=== PATIENT | female | born 1935 | race Caucasian/White ===

== ENCOUNTER 2017-07-18 20:35 | Emergency (ER) | payer MEDICAID, MEDICARE, OTHER ==
[2017-07-18 20:42] VITALS: BMI 22.1
[2017-07-18 21:03] VITALS: TEMP 98.2
--- NOTE | 2017-07-18 21:06 | ED PDOC ---
Arrival/HPI - General Chief Complaint: Dizziness/Lightheaded Time Seen by Provider: 07/18/17 20:41 Historian: Patient, Family, Lead Systems Engineer (scribe) - History of Present Illness Narrative History of Present Illness (Text): 07/18/17 21:01 A 82 year old female presents to the emergency department complaining of dizziness since this morning. Patient is Niuean speaking, history obtained through scribe who translated for patient. Patient reports her symptom is relieved with her eyes closed and worsened with movement. Daughter reports patient was recently discharged yesterday from [facility] for pneumonia. Patient denies any fever, chills, nausea, vomiting, abdominal pain, chest pain, shortness of breath, headache, vision changes, hearing changes or any other complaints. Time/Duration: Other (this morning) Symptom Course: Unchanged Quality: Other Context: Home Past Medical History - Provider Review Nursing Documentation Reviewed: Yes - Infectious Disease Hx of Infectious Diseases: None - Tetanus Immunization Tetanus Immunization: Unknown - Cardiac Hx Cardiac Disorders: Yes Hx Congestive Heart Failure: Yes Hx TN: Yes (TN) Hx Hypertension: Yes Other/Comment: HX OF DVTs - Pulmonary Hx Respiratory Disorders: Yes Hx Pneumonia: Yes - Neurological Hx Neurological Disorder: Yes HX Cerebrovascular Accident: Yes Hx Dizziness: Yes - HEENT Hx HEENT Disorder: No - Renal Hx Renal Disorder: No - Endocrine/Metabolic Hx Endocrine Disorders: No - Hematological/Oncological Hx Blood Disorders: Yes Hx Anemia: Yes - Integumentary Hx Dermatological Disorder: No - Musculoskeletal/Rheumatological Hx Arthritis: Yes - Gastrointestinal Hx Gastrointestinal Disorders: No - Genitourinary/Gynecological Hx Genitourinary Disorders: No - Psychiatric Hx Psychophysiologic Disorder: No Hx Substance Use: No - Past Surgical History Past Surgical History: Non-Contributing - Surgical History Hx Coronary Stent: (?) Other/Comment: hernia repair - Anesthesia Hx Anesthesia: Yes Hx Anesthesia Reactions: No Hx Malignant Hyperthermia: No - Suicidal Assessment Feels Threatened In Home Enviroment: No Family/Social History - Physician Review Nursing Documentation Reviewed: Yes Family/Social History: No Known Family HX Smoking Status: Never Smoked Hx Alcohol Use: No Hx Substance Use: No Hx Substance Use Treatment: No Allergies/Home Meds Allergies/Adverse Reactions: Allergies No Known Allergies Allergy (Verified 07/18/17 20:43) Home Medications: Home Meds Medication Instructions Recorded Confirmed Nifedipine [Nifedipine ER] 60 mg PO DAILY 06/11/13 07/18/17 Aspirin [Aspirin Chewable] 81 mg PO DAILY 07/11/17 07/18/17 Clopidogrel [Plavix] 75 mg PO DAILY 07/11/17 07/18/17 Furosemide [Lasix] 1 tab PO DAILY 07/11/17 07/18/17 Metoprolol Succinate 100 mg PO DAILY 07/11/17 07/18/17 Ramipril [Altace] 1.25 mg PO DAILY 07/11/17 07/18/17 Simvastatin 40 mg PO HS 07/11/17 07/18/17 amLODIPine [Norvasc] 1 tab PO DAILY 07/11/17 07/18/17 Review of Systems - Physician Review All systems were reviewed & negative as marked: Yes - Review of Systems Constitutional: absent: Fevers, Night Sweats Eyes: absent: Vision Changes ENT: absent: Hearing Changes Respiratory: absent: SOB Cardiovascular: absent: Chest Pain Gastrointestinal: absent: Abdominal Pain, Nausea, Vomiting Neurological: Dizziness. absent: Headache Physical Exam Vital Signs Reviewed: Yes Vital Signs Temp Pulse Resp BP Pulse Ox 07/18/17 23:00 65 16 138/62 98 07/18/17 20:39 98.2 F 61 18 134/58 L 95 Appearance: Positive for: Uncomfortable (eyes closed) Pain Distress: None Mental Status: Positive for: Alert and Oriented X 3 Finger Stick Blood Glucose: 138 - Systems Exam Head: Present: Atraumatic, Normocephalic Pupils: Present: PERRL Extroacular Muscles: Present: EOMI Mouth: Present: Moist Mucous Membranes Neck: Present: Normal Range of Motion. No: Meningeal Signs Respiratory/Chest: Present: Clear to Auscultation, Good Air Exchange. No: Respiratory Distress, Accessory Muscle Use Cardiovascular: Present: Regular Rate and Rhythm Abdomen: No: Tenderness, Distention, Peritoneal Signs Back: Present: Normal Inspection Upper Extremity: No: Cyanosis, Edema Lower Extremity: No: Edema Neurological: Present: GCS=15, CN II-XII Intact, Speech Normal, Motor Func Grossly Intact, Normal Sensory Function, Normal Cerebellar Funct, Norm Deep Tendon Reflexes, Other (no nystamus, no skew deviation) Skin: Present: Warm, Dry, Normal Color. No: Rashes Psychiatric: Present: Alert, Oriented x 3 Medical Decision Making ED Course and Treatment: 07/18/17 21:01 EKG shows sinus bradycardia at 59 BPM. Interpreted by me. 07/18/17 22:00 On re-evaluation, patient states her symptom has fully resolved after meclazine. 07/18/17 22:48 EXAM: CT Head Without Intravenous Contrast CLINICAL HISTORY: 82 years old, female; Signs and symptoms; Dizziness; Additional info: Dizzy TECHNIQUE: Axial computed tomography images of the head/brain without intravenous contrast. All CT scans at this facility use one or more dose reduction techniques, viz.: automated exposure control; ma/kV adjustment per patient size (including targeted exams where dose is matched to indication; i.e. head); or iterative reconstruction technique. COMPARISON: No relevant prior studies available. FINDINGS: Brain: Pslb-vy-mjjwjpys atrophy. No intracranial hemorrhage. No mass. Several scattered foci of decreased attenuation within periventricular/subcortical white matter. Probable chronic lacunar infarct within LEFT basal ganglia. Probable chronic lacunar infarct within RIGHT cerebellum. No definite edema. Ventricles: No hydrocephalus. Bones/joints: No acute fracture. Soft tissues: Unremarkable. Vasculature: Atherosclerotic disease of intracranial arteries. Sinuses: No acute sinusitis. Mastoid air cells: No mastoid effusion. Orbits: Unremarkable as visualized. IMPRESSION: 1. Nonspecific white matter changes. Acute infarction may be CT occult within first 24 hours. If a focal deficit persists, consider followup CT or MRI for further evaluation. 2. Incidental/non-acute findings are described above 07/18/17 22:52 Disc results w pt and daughter- she feels well, no recurrence of her symptoms. she appears well, is now talkative, smiling, with eyes now open. they wish to go home. disc importance of close follow up as well as rtr. - Lab Interpretations Lab Results: 07/18/17 21:14 07/18/17 21:14 Lab Results 07/18/17 21:14: Sodium 144, Potassium 4.0, Chloride 106, Carbon Dioxide 30, Anion Gap 13, BUN 42 H, Creatinine 1.3 H, Est GFR ( Amer) 47, Est GFR ( Non-Af Amer) 39, Random Glucose 137 H, Calcium 9.6, Total Bilirubin 0.5, AST 59 H D, ALT 56, Alkaline Phosphatase 80, Troponin I 0.04 D, Total Protein 7.9, Albumin 4.1, Globulin 3.8, Albumin/Globulin Ratio 1.1 12/06/17 21:14: WBC 8.4 D, RBC 4.69, Hgb 12.8, Hct 39.7, MCV 84.6, MCH 27.3, MCHC 32.2, RDW 14.6 H, Plt Count 357, MPV 10.1, Gran % 69.6 H, Lymph % (Auto) 23.8, [place] % (Auto) 6.4 H, Eos % (Auto) 0.2 L, Baso % (Auto) 0.0, Gran # 5.87, Lymph # 2.0, [place] # 0.5, Eos # 0.0, Baso # 0.00 - RAD Interpretation Radiology Orders: 07/18/17 21:03 HEAD W/O CONTRAST [CT] Stat CHEST PORTABLE [RAD] Stat - Medication Orders Current Medication Orders: Discontinued Medications Meclizine HCl (Antivert) 25 mg PO STAT STA Stop: 07/18/17 21:04 Last Admin: 07/18/17 21:25 Dose: 25 mg - Scribe Statement The provider has reviewed the documentation as recorded by the Leland Cohen Provider Scribe Attestation: All medical record entries made by the Rinkuibariella were at my direction and personally dictated by me. I have reviewed the chart and agree that the record accurately reflects my personal performance of the history, physical exam, medical decision making, and the department course for this patient. I have also personally directed, reviewed, and agree with the discharge instructions and disposition. Disposition/Present on Arrival - Present on Arrival Any Indicators Present on Arrival: Yes History of DVT/PE: Yes History of Uncontrolled Diabetes: No Urinary Catheter: No History of Decub. Ulcer: No History Surgical Site Infection Following: None - Disposition Have Diagnosis and Disposition been Completed?: Yes Diagnosis: Vertigo Disposition: HOME/ ROUTINE Disposition Time: 22:51 Condition: IMPROVED Discharge Instructions (ExitCare): Vertigo (ED) Print Language: UKRAINIAN Additional Instructions: Please follow up with your doctor tomorrow. Return to the ER for any worsening symptoms or for any other concerns. Prescriptions: Meclizine [Meclizine*] 25 mg PO Q8H PRN #30 tab PRN Reason: vertigo Forms: [employer] (Niuean)
[2017-07-18 21:30] LABS: EOS % 0.2 % (1.5-5.0); GRAN # 5.87 (1.4-6.5); GRAN % 69.6 % (50.0-68.0); HEMATOCRIT 39.7 % (36.0-48.0); LYMPH % 23.8 % (22.0-35.0); MEAN CELL VOLUME 84.6 fl (80.0-105.0); MEAN CORPUSCULAR HEMOGLOBIN 27.3 pg (25.0-35.0); MEAN CORPUSCULAR HGB CONC 32.2 g/dl (31.0-37.0); MEAN PLATELET VOLUME 10.1 fl (7.0-11.0); MONO # 0.5 (0.1-0.6); MONO % 6.4 % (1.0-6.0); RED CELL DISTRIBUTION WIDTH 14.6 % (11.5-14.5); WHITE BLOOD COUNT 8.4 10^3/ul (4.5-11.0)
[2017-07-18 21:35] LABS: ALB/GLOB RATIO 1.1 (1.1-1.8); BILIRUBIN,TOTAL 0.5 mg/dL (0.2-1.3); CALCIUM 9.6 mg/dL (8.4-10.5); TOTAL PROTEIN 7.9 g/dL (5.8-8.3)
[2017-07-18 21:46] LABS: TROPONIN I 0.04 ng/mL
[2017-07-18] MEDS ORDERED: Sodium Chloride 0.9% 1,000 ML IV STA (21:55)
--- NOTE | 2017-07-18 22:42 | CT ---
EXAM: CT Head Without Intravenous Contrast CLINICAL HISTORY: 82 years old, female; Signs and symptoms; Dizziness; Additional info: Dizzy TECHNIQUE: Axial computed tomography images of the head/brain without intravenous contrast. All CT scans at this facility use one or more dose reduction techniques, viz.: automated exposure control; ma/kV adjustment per patient size (including targeted exams where dose is matched to indication; i.e. head); or iterative reconstruction technique. COMPARISON: No relevant prior studies available. FINDINGS: Brain: Bzlk-uj-rzxsoihm atrophy. No intracranial hemorrhage. No mass. Several scattered foci of decreased attenuation within periventricular/subcortical white matter. Probable chronic lacunar infarct within LEFT basal ganglia. Probable chronic lacunar infarct within RIGHT cerebellum. No definite edema. Ventricles: No hydrocephalus. Bones/joints: No acute fracture. Soft tissues: Unremarkable. Vasculature: Atherosclerotic disease of intracranial arteries. Sinuses: No acute sinusitis. Mastoid air cells: No mastoid effusion. Orbits: Unremarkable as visualized. IMPRESSION: 1. Nonspecific white matter changes. Acute infarction may be CT occult within first 24 hours. If a focal deficit persists, consider followup CT or MRI for further evaluation. 2. Incidental/non-acute findings are described above.
[2017-07-18 23:20] VITALS: BP 138/62; PULSE 65; RESP 16; O2SAT 98
--- NOTE | 2017-07-19 07:56 | RAD ---
HISTORY: dizzy COMPARISON: 05/09/2017 FINDINGS: LUNGS: No active pulmonary disease. PLEURA: Right-sided pleural plaques CARDIOVASCULAR: Severe cardiomegaly and aortic tortuosity. OSSEOUS STRUCTURES: No significant abnormalities. VISUALIZED UPPER ABDOMEN: Normal. OTHER FINDINGS: None. IMPRESSION: No active disease.
--- NOTE | 2017-07-19 09:53 | CARD ---
APPROVED REPORT EKG Measurement Heart [id number] <Conclusion> Sinus bradycardia Otherwise normal ECG
== END 2017-07-18 23:21 | disposition home or self-care (01) ==
LOC: ED 20:35
DX: R42 Dizziness and giddiness (principal); I10 Essential (primary) hypertension; I25.2 Old myocardial infarction

== ENCOUNTER 2017-10-08 09:57 | Inpatient (IN) | payer OTHER, MEDICAID ==
[2017-10-08 10:43] VITALS: BMI 25.4
--- NOTE | 2017-10-08 11:22 | ED PDOC ---
Arrival/HPI - General Chief Complaint: Dizziness/Lightheaded - History of Present Illness Narrative History of Present Illness (Text): 10/08/17 11:17 Pt is an 82 yo F with PMH of CAD, chronic CHF with preserved EF, hypertension, hypercholesterolemia, and possible dementia presents to ED with dizziness for the past 2 weeks. Pt states that she gets dizzy when she gets up too quickly, but when she rests the dizziness goes away. 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 Good Humor Vendor states that she seems to be more confused lately. Pt denied CP, SOB, n/v/d, abdominal pain, fever, chills, peripheral edema, MCCRAY, or dysuria. PMD: [place] Past Medical History - Provider Review Nursing Documentation Reviewed: Yes - Infectious Disease Hx of Infectious Diseases: None - Tetanus Immunization Tetanus Immunization: Unknown - Cardiac Hx Cardiac Disorders: Yes Hx Congestive Heart Failure: Yes Hx Hypertension: Yes - Pulmonary Hx Respiratory Disorders: No - Neurological Hx Neurological Disorder: Yes Hx Dizziness: Yes - HEENT Hx HEENT Disorder: No - Renal Hx Renal Disorder: No - Endocrine/Metabolic Hx Endocrine Disorders: No - Hematological/Oncological Hx Blood Disorders: Yes Hx Anemia: Yes - Integumentary Hx Dermatological Disorder: No - Musculoskeletal/Rheumatological Hx Musculoskeletal Disorders: Yes Hx Arthritis: Yes - Gastrointestinal Hx Gastrointestinal Disorders: No - Genitourinary/Gynecological Hx Genitourinary Disorders: No - Psychiatric Hx Psychophysiologic Disorder: No Hx Substance Use: No - Past Surgical History Past Surgical History: Non-Contributing - Surgical History Hx Coronary Stent: (?) Other/Comment: hernia repair - Anesthesia Hx Anesthesia: Yes Hx Anesthesia Reactions: No Hx Malignant Hyperthermia: No - Suicidal Assessment Feels Threatened In Home Enviroment: No Family/Social History - Physician Review Nursing Documentation Reviewed: Yes Family/Social History: No Known Family HX Smoking Status: Never Smoked Hx Alcohol Use: No Hx Substance Use: No Hx Substance Use Treatment: No Allergies/Home Meds Allergies/Adverse Reactions: Allergies No Known Allergies Allergy (Verified 07/18/17 20:43) Home Medications: Home Meds Medication Instructions Recorded Confirmed Aspirin [Aspirin Chewable] 81 mg PO DAILY 07/11/17 10/08/17 Clopidogrel [Plavix] 75 mg PO DAILY 07/11/17 10/08/17 Furosemide [Lasix] 1 tab PO DAILY 07/11/17 10/08/17 Metoprolol Succinate 100 mg PO DAILY 07/11/17 10/08/17 Ramipril [Altace] 1.25 mg PO DAILY 07/11/17 10/08/17 Simvastatin 40 mg PO HS 07/11/17 10/08/17 amLODIPine [Norvasc] 1 tab PO DAILY 07/11/17 10/08/17 Donepezil [Aricept] 5 mg PO DAILY 10/08/17 10/08/17 Review of Systems - Physician Review All systems were reviewed & negative as marked: Yes - Review of Systems Constitutional: Normal. absent: Fatigue, Weight Change, Fevers, Night Sweats Eyes: Normal ENT: Normal. absent: Hearing Changes, Tinnitus Respiratory: Normal Cardiovascular: Normal Gastrointestinal: Normal Genitourinary Female: Normal Musculoskeletal: Normal Skin: Normal Neurological: Dizziness. absent: Headache, Focal Weakness, Gait Changes Endocrine: Normal Hemo/Lymphatic: Normal Psychiatric: Normal Physical Exam Vital Signs Reviewed: Yes Vital Signs Temp Pulse Resp BP Pulse Ox 10/08/17 10:36 98.1 F 72 18 142/84 98 Temperature: Afebrile Blood Pressure: Normal Pulse: Regular Respiratory Rate: Normal Appearance: Positive for: Well-Appearing Pain Distress: None Mental Status: Positive for: Alert and Oriented X 3 - Systems Exam Head: Present: Atraumatic, Normocephalic Pupils: Present: PERRL Extroacular Muscles: Present: EOMI Conjunctiva: Present: Normal Mouth: Present: Moist Mucous Membranes Nose (Internal): Present: Normal Inspection Neck: Present: Normal Range of Motion. No: Meningeal Signs, MIDLINE TENDERNESS , Paraspinal Tenderness Respiratory/Chest: Present: Clear to Auscultation. No: Respiratory Distress, Accessory Muscle Use, Wheezes, Rales, Rhonchi Cardiovascular: Present: Regular Rate and Rhythm, Normal S1, S2. No: Murmurs, Rub, Gallop Abdomen: No: Tenderness, Distention, Peritoneal Signs, Rebound, Guarding Back: Present: Normal Inspection Upper Extremity: Present: Normal Inspection Lower Extremity: Present: Normal Inspection Neurological: Present: GCS=15, CN II-XII Intact, Speech Normal, Motor Func Grossly Intact, Normal Sensory Function, Normal 2Pt Descrimination. No: Gait Normal (patient has difficulty standing/walking without assistance) Skin: Present: Warm, Dry, Normal Color Psychiatric: Present: Alert, Oriented x 3 Medical Decision Making ED Course and Treatment: 10/08/17 11:25 Assessment: 82 yo F presents to ED with 2 week history of dizziness. Plan: - CBC - CMP - Cardiac Iso - EKG - UA - Head CT - Orthostatics 10/08/17 11:43 EKG showed sinus rhythem with 1st degree AV block, rate 62. 10/08/17 11:45 Orthostatic vital signs negative. 10/08/17 12:30 CT head shows no acute intracranial findings. 10/08/17 15:[address] Allen, she agrees with plan and accepts patient under her service. Requests Dr. Santoyo for neuro consult. Impression: Dizziness, near-syncope; patient will be admitted for observation under remote telemetry. - Lab Interpretations Lab Results: 10/08/17 12:17 10/08/17 12:17 Lab Results 10/08/17 13:55: Urine Color Yellow, Urine Appearance Clear, Urine pH 6.0, Ur Specific [place] >= 1.030, Urine Protein >=300 H, Urine Glucose (UA) Negative, Urine Ketones Negative, Urine Blood Negative, Urine Nitrate Negative, Urine Bilirubin Negative, Urine Urobilinogen 0.2, Ur Leukocyte Esterase Trace H, Urine RBC 0 - 2, Urine WBC 1 - 3, Ur Epithelial Cells 1 - 3, Urine Bacteria Trace 10/08/17 12:17: Sodium 146, Potassium 4.0, Chloride 109 H, Carbon Dioxide 26, Anion Gap 14, BUN 21, Creatinine 1.1, Est GFR ( Amer) 58, Est GFR (Non- Af Amer) 48, Random Glucose 96, Calcium 10.7 H, Magnesium 2.2, Total Bilirubin 0.6, AST 39 H D, ALT 30, Alkaline Phosphatase 78, Lactate Dehydrogenase 410, Total Creatine Kinase 60, Troponin I 0.03 D, Total Protein 7.8, Albumin 4.0, Globulin 3.8, Albumin/Globulin Ratio 1.1 10/08/17 12:17: WBC 9.9, RBC 4.37, Hgb 11.9 L, Hct 37.4, MCV 85.6, MCH 27.2, MCHC 31.8, RDW 15.6 H, Plt Count 382, MPV 9.7, Gran % 35.4 L, Lymph % (Auto) 40.5 H, [place] % (Auto) 6.6 H, Eos % (Auto) 17.0 H, Baso % (Auto) 0.5, Gran # 3.50 , Lymph # (Auto) 4.0 H, [place] # (Auto) 0.7 H, Eos # (Auto) 1.7 H, Baso # (Auto) 0.05 - RAD Interpretation Radiology Orders: 10/08/17 11:12 HEAD W/O CONTRAST [CT] Stat Disposition/Present on Arrival - Present on Arrival Any Indicators Present on Arrival: No History of DVT/PE: Yes History of Uncontrolled Diabetes: No Urinary Catheter: No History of Decub. Ulcer: No History Surgical Site Infection Following: None - Disposition Have Diagnosis and Disposition been Completed?: Yes Diagnosis: Near syncope, Dizziness Disposition: HOSPITALIZED Disposition Time: 15:09 Patient Plan: Admission, Observation Condition: STABLE Referrals: Carlos Granger [Primary Care Provider] - Follow up with primary Forms: [employer] ([place])
--- NOTE | 2017-10-08 12:19 | CT ---
PROCEDURE: CT HEAD WITHOUT CONTRAST. HISTORY: dizziness COMPARISON: None available. TECHNIQUE: Axial computed tomography images were obtained through the head/brain without intravenous contrast. Radiation dose: Total exam DLP = 730 mGy-cm. This CT exam was performed using one or more of the following dose reduction techniques: Automated exposure control, adjustment of the mA and/or kV according to patient size, and/or use of iterative reconstruction technique. FINDINGS: HEMORRHAGE: No intracranial hemorrhage. BRAIN: No mass effect or edema. Chronic microvascular changes are seen in the periventricular white matter. VENTRICLES: Unremarkable. No hydrocephalus. CALVARIUM: Unremarkable. PARANASAL SINUSES: Unremarkable as visualized. No significant inflammatory changes. MASTOID AIR CELLS: Unremarkable as visualized. No inflammatory changes. OTHER FINDINGS: None. IMPRESSION: No acute intracranial findings
[2017-10-08 12:27] LABS: BASO # 0.05 K/mm3 (0.0-2.0); BASO % 0.5 % (0.0-3.0); EOS # 1.7 (0.0-0.7); GRAN # 3.5 (1.4-6.5); GRAN % 35.4 % (50.0-68.0); HEMOGLOBIN 11.9 g/dL (12.0-16.0); LYMPH % 40.5 % (22.0-35.0); MEAN CELL VOLUME 85.6 fl (80.0-105.0); MEAN CORPUSCULAR HEMOGLOBIN 27.2 pg (25.0-35.0); MEAN CORPUSCULAR HGB CONC 31.8 g/dl (31.0-37.0); MEAN PLATELET VOLUME 9.7 fl (7.0-11.0); MONO # 0.7 (0.1-0.6); MONO % 6.6 % (1.0-6.0); RBC 4.37 10^6/uL (3.5-6.1); RED CELL DISTRIBUTION WIDTH 15.6 % (11.5-14.5); WHITE BLOOD COUNT 9.9 10^3/ul (4.5-11.0)
[2017-10-08 12:39] LABS: ALB/GLOB RATIO 1.1 (1.1-1.8); CALCIUM 10.7 mg/dL (8.4-10.5); MAGNESIUM 2.2 mg/dL (1.7-2.2)
[2017-10-08 12:49] LABS: TROPONIN I 0.03 ng/mL
[2017-10-08 14:04] LABS: URINE BILIRUBIN NEGATIVE (NEGATIVE); URINE BLOOD NEGATIVE (NEGATIVE); URINE GLUCOSE (UA) NEGATIVE (NEGATIVE); URINE LEUKOCYTE ESTERASE TRACE Leu/uL (NEGATIVE); URINE NITRATE NEGATIVE (NEGATIVE); URINE PROTEIN >=300 mg/dL (<30 mg/dL); URINE UROBILINOGEN 0.2 E.U./dL (<1 E.U./dL)
[2017-10-08 14:08] LABS: URINE APPEARANCE CLEAR (CLEAR); URINE COLOR YELLOW (YELLOW)
[2017-10-08 14:19] LABS: URINE BACTERIA TRACE (NEG); URINE RBC 0 - 2 /hpf (0-2)
--- NOTE | 2017-10-08 16:33 | CARD ---
APPROVED REPORT EKG Measurement Heart [id number] <Conclusion> Sinus rhythm with 1st degree AV block Nonspecific T wave abnormality Abnormal ECG
--- NOTE | 2017-10-08 17:50 | CON ---
DATE: 10/08/2017 NEUROLOGY CONSULTATION CHIEF COMPLAINT: Mild dizziness. HISTORY OF PRESENT ILLNESS: This is an 82-year-old woman with history of coronary artery disease, chronic CHF, preserved EF with hypertension, hypercholesterolemia, some mild cognitive impairment, dizziness for the past 2 weeks. She states when she gets up from a sitting to a standing position, she gets lightheaded, the room. Currently she mentions that her dizziness is much better. She occasionally has intermittent episodes of poor attention span and slow thought process. This is likely related to underlying cognitive impairment. A CAT scan of the head showed no acute intracranial abnormalities or chronic ischemic changes. There was no major changes in her labs except for high calcium level of 10.7. PAST MEDICAL HISTORY: History of hypertension, CHF, hypercholesterolemia, mild cognitive impairment. FAMILY HISTORY: Noncontributory. SOCIAL HISTORY: No illicit drug use, smoking or EtOH abuse. MEDICATIONS: Reviewed by nurse reconciliation sheet. REVIEW OF SYSTEMS: A 14-point review of systems negative except as per the HPI. PHYSICAL EXAMINATION: VITAL SIGNS: Temperature 98, pulse rate 85, blood pressure 146/79, respiratory rate of 20, oxygen saturation 96% by room air. GENERAL: Patient is sitting up in bed, no acute distress. HEENT: Atraumatic, normocephalic. PERRLA. Extraocular muscles intact. NECK: Supple. No JVD, no adenopathy noted. HEART: S1, S2, normal rate and rhythm. No murmurs, rubs or gallops. ABDOMEN: Soft, nontender, nondistended. Bowel sounds present. EXTREMITIES: No clubbing, no cyanosis. Peripheral pulses 2+ felt bilaterally. NEUROLOGIC: Patient is alert, oriented to person, place, month and year. Speech is fluent without any errors. Cranial nerves II through XII intact. Poor attention span and slow thought process. Recall after 5 minutes is 0/3. Sensory: Light touch, pinprick, proprioception, vibration intact. DTRs are 2+ throughout and 1 at the ankles. Coordination: [place]-hj-tnoj intact. Gait is deferred for now. No tremors are seen. LABORATORY DATA: Sodium is 146, potassium 4, chloride 109, carbon dioxide 26, BUN of 21, creatinine 1.1, random glucose of 96. ASSESSMENT AND PLAN: This is an 82-year-old woman with history of coronary artery disease, chronic congestive heart failure, preserved ejection fraction, hypertension, hypercholesterolemia with underlying mild cognitive impairment, , came in with dizziness for the past 2 weeks intermittently especially when getting up from a sitting to standing position and when she gets up too quickly. She denies any symptoms. She currently feels that the dizziness is much better right now. Her CAT scan of the head showed no acute intracranial abnormalities. Likely her dizziness could be secondary to possible transient hypertensive episode with superimposed underlying positional changes with possible near vasovagal component. Her CAT scan did not really show any acute intracranial abnormalities. She has no focal neurological signs in terms of weakness. RECOMMENDATIONS: At this time, I recommend: 1. PT/OT assessment. 2. Orthostatic vital signs. 3. Carotid Doppler and Holter monitor. 4. We will keep her blood pressure systolic between 130s to 140s and diastolic 70s to 80s and continue with current present medical management. Thank you for this consult. Lasha Santoyo MD /17:49:50
[2017-10-08] MEDS ORDERED: Influenza Vaccine 60 mcg/0.5 mL SYR (4YR UP) IM ONE (22:58)
[2017-10-08] MEDS ORDERED: Pneumococcal 23-Valent Vaccine IM ONE (22:58)
[2017-10-09 06:25] LABS: HEMOGLOBIN 11.7 g/dL (12.0-16.0); MEAN CELL VOLUME 84.8 fl (80.0-105.0); MEAN CORPUSCULAR HGB CONC 31.9 g/dl (31.0-37.0); MEAN PLATELET VOLUME 9.5 fl (7.0-11.0); RBC 4.33 10^6/uL (3.5-6.1); RED CELL DISTRIBUTION WIDTH 15.4 % (11.5-14.5)
[2017-10-09 06:48] LABS: ALB/GLOB RATIO 1.1 (1.1-1.8); ALBUMIN 4.1 g/dL (3.0-4.8); ALT/SGPT 34 U/L (7-56); AST/SGOT 37 U/L (14-36); BLOOD UREA NITROGEN 18 mg/dL (7-21); CALCIUM 10.5 mg/dL (8.4-10.5); GFR AFRICAN-AMERICAN > 60; GFR NON-AFRICAN AMERICAN 53; HDL CHOLESTEROL 34 mg/dL (29-60)
[2017-10-09 06:53] LABS: IRON 146 ug/dL (45-180)
[2017-10-09 07:09] LABS: LDL CHOLESTEROL 101 mg/dL (0-129)
[2017-10-09 07:13] LABS: % IRON SATURATION 52 % (20-55); TOTAL IRON BINDING CAPACITY 283 ug/dL (265-497)
--- NOTE | 2017-10-09 09:29 | US ---
PROCEDURE: Bilateral carotid artery duplex ultrasound HISTORY: Carotid stenosis dizzy PHYSICIAN(S): Eliseo Panchal MD. TECHNIQUE: Duplex sonography and color-flow Doppler were used to evaluate the carotid bifurcations and limited segments of the vertebral arteries bilaterally. FINDINGS: There is mild diffuse smooth heterogeneous plaque noted at the carotid bifurcations bilaterally. The peak systolic velocity in the proximal right internal carotid artery is 51 cm/sec. This corresponds to a 20 to 39% proximal right ICA stenosis. Normal systolic velocities are noted in the proximal right external carotid artery. There is antegrade flow in the small right vertebral artery. The peak systolic velocity in the proximal left internal carotid artery is 57 cm/sec. This corresponds to a 20 to 39% proximal left ICA stenosis. Normal systolic velocities are noted in the proximal left external carotid artery. There is antegrade flow in the left vertebral artery. IMPRESSION: 1. Bilateral 20-39% proximal ICA stenoses. 2. Antegrade flow in both vertebral arteries.
--- NOTE | 2017-10-09 10:03 | HP ---
CHIEF COMPLAINT: Dizziness, lightheadedness. HISTORY OF PRESENT ILLNESS: Ms. Mary Barton is an 82-year-old female with past medical history of coronary artery disease with congestive heart failure, came to the Emergency Room with feeling of dizziness for past two weeks. The patient states that she gets dizzy when she gets up too quickly, but when she rests, the dizziness goes away. The patient lives at home by herself with payroll technician. Sap Hana Developer states that she seems to be more confused lately. Denied chest pain or shortness of breath. No nausea, vomiting, diarrhea or abdominal pain. No fever, no chills, no headache, no peripheral edema, no dysuria. PAST MEDICAL HISTORY: Congestive heart failure, hypertension, dizziness, anemia, arthritis, hernia repair. FAMILY HISTORY: Father and mother, noncontributory. HABITS: Never smoked, no drug, no ethanol. ALLERGIES: THE PATIENT IS NOT ALLERGIC WITH ANY MEDICATIONS. HOME MEDICATIONS: Aspirin, Plavix, Lasix, metoprolol, Altace, simvastatin, Norvasc, Aricept. REVIEW OF SYSTEMS: The patient is seen and examined at the bedside, looking comfortable. No nausea, vomiting or diarrhea. No hematuria or hematochezia. No swelling of the legs. No chest pain, no palpitation, no headache, no fatigue, no weight change, no night sweats, no hearing changes, no tinnitus. Her son and mhwtnkcw-jf-sqc were standing on the bedside. PHYSICAL EXAMINATION VITAL SIGNS: Temperature 98.1, pulse 72, respiratory rate 18, blood pressure 142/84, pulse oximetry is 98. HEENT: Head: Normocephalic, atraumatic. Eyes: PERRLA. Extraocular muscles intact. Conjunctivae clear. Nose, patent. Mucous membranes moist. NECK: Supple. No carotid bruit. No JVD or thyromegaly. CHEST: Bilaterally symmetrical. HEART: S1 and S2 positive. LUNGS: Clear to auscultation. ABDOMEN: Soft. Bowel sounds present. No organomegaly. EXTREMITIES: No edema, no cyanosis. NEUROLOGIC: The patient is awake, alert, moving all 4 extremities. No focal deficits. LABORATORY DATA: White blood cell 9.9, hemoglobin 11.9, hematocrit 37.4, platelets 382,000. Sodium 146, potassium 4.0, BUN 21, creatinine 1.1, glucose 96. ASSESSMENT AND PLAN: Ms. Mary Barton is an 82-year-old lady with anemia, hyperchloremia came with near-syncope, dizziness, history of coronary artery disease, congestive heart failure with preserved ejection fraction, hypertension, hypercholesterolemia, dementia. CAT scan of the head done, reviewed by me. Bilateral carotid Doppler of the neck done, results are pending. Neurology consult called with Dr. Santoyo, seizure results are appreciated. When I saw the patient in the Emergency Room in the presence of her son and [id number], the patient was asymptomatic, feels better, maybe her dizziness could be secondary to possibly transient hypotensive episode with superimposed underlying positional changes with possibly near vasovagal components. CAT scan did not really show any acute intracranial abnormalities. Recommended physical therapy and occupational therapy, orthostatic vital signs, carotid Doppler and Holter monitor, controlling blood pressure, gastrointestinal and deep venous thrombosis prophylaxis. The patient has anemia. Started home medication. We will follow up. Noemi Allen MD MTDD
[2017-10-09] MEDS ORDERED: Potassium Chloride 20 mEq ER Tab PO ONE (10:58)
[2017-10-09] MEDS: Pantoprazole 40 mg EC Tab PO SCH (11:23)
[2017-10-09] MEDS: Metoprolol Succinate 100 mg XL Tab PO SCH (11:26)
[2017-10-09 13:22] LABS: FOLATE 9.5 ng/mL
--- NOTE | 2017-10-09 15:49 | CP.PCM.PN ---
Subjective - Date & Time of Evaluation Date of Evaluation: 10/09/17 Time of Evaluation: 14:00 - Subjective Subjective: DATE: 10/09/2017 NEUROLOGY FOLLOW UP CHIEF COMPLAINT: Mild dizziness. SUBJECTIVE: Carotid doppler reviewed. Patient is eating well and no more dizziness. PAST MEDICAL HISTORY: History of hypertension, CHF, hypercholesterolemia, mild cognitive impairment. FAMILY HISTORY: Noncontributory. SOCIAL HISTORY: No illicit drug use, smoking or EtOH abuse. MEDICATIONS: Reviewed by nurse reconciliation sheet. REVIEW OF SYSTEMS: A 14-point review of systems negative except as per the HPI. PHYSICAL EXAMINATION: VITAL SIGNS: Reviewed. GENERAL: Patient is sitting up in bed, no acute distress. HEENT: Atraumatic, normocephalic. PERRLA. Extraocular muscles intact. NECK: Supple. No JVD, no adenopathy noted. HEART: S1, S2, normal rate and rhythm. No murmurs, rubs or gallops. ABDOMEN: Soft, nontender, nondistended. Bowel sounds present. EXTREMITIES: No clubbing, no cyanosis. Peripheral pulses 2+ felt bilaterally. NEUROLOGIC: Patient is alert, oriented to person, place, month and year. Speech is fluent without any errors. Cranial nerves II through XII intact. Poor attention span and slow thought process. Recall after 5 minutes is 0/3. Sensory: Light touch, pinprick, proprioception, vibration intact. DTRs are 2+ throughout and 1 at the ankles. Coordination: Liouxl-ud-rjun intact. Gait is deferred for now. No tremors are seen. LABORATORY DATA: Reviewed via chart. \ ASSESSMENT AND PLAN: This is an 82-year-old woman with history of coronary artery disease, chronic congestive heart failure, preserved ejection fraction, hypertension, hypercholesterolemia with underlying mild cognitive impairment came in with dizziness for the past 2 weeks intermittently especially when getting up from a sitting to standing position and when she gets up too quickly. She currently feels that the dizziness is much better right now. Her CAT scan of the head showed no acute intracranial abnormalities. Orthostatics are negative, Likely her dizziness could be secondary to possible transient hypertensive episode with superimposed underlying positional changes with possible near vasovagal component. She has no focal neurological signs in terms of weakness. RECOMMENDATIONS: At this time, I recommend: 1. PT/OT assessment. 2. keep her blood pressure systolic between 130s to 140s and diastolic 70s to 80s and continue with current present medical management. Thank you Lasha Santoyo MD Objective - Vital Signs/Intake and Output Vital Signs (last 24 hours): Temp Pulse Resp BP Pulse Ox 97.9 F 81 18 153/78 H 97 10/09/17 08:37 10/09/17 08:37 10/09/17 08:37 10/09/17 11:24 10/09/17 08:37 Intake and Output: 10/09/17 10/09/17 06:59 18:59 Intake Total 0 Balance 0 - Medications Medications: Current Medications Amlodipine Besylate (Norvasc) 2.5 mg PO DAILY [facility] Last Admin: 10/09/17 11:22 Dose: 2.5 mg Aspirin (Aspirin Chewable) 81 mg PO DAILY [facility] Last Admin: 10/09/17 11:23 Dose: 81 mg Clopidogrel Bisulfate (Plavix) 75 mg PO DAILY [facility] Last Admin: 10/09/17 11:21 Dose: 75 mg Donepezil HCl (Aricept) 5 mg PO HS [facility] Last Admin: 10/08/17 21:14 Dose: 5 mg Furosemide (Lasix) 40 mg PO DAILY [facility] Last Admin: 10/09/17 11:24 Dose: 40 mg Metoprolol Succinate (Toprol Xl) 100 mg PO BRK [facility] Last Admin: 10/09/17 11:26 Dose: 100 mg Pantoprazole Sodium (Protonix Ec Tab) 40 mg PO DAILY [facility] Last Admin: 10/09/17 11:23 Dose: 40 mg Ramipril (Altace) 1.25 mg PO DAILY [facility] Last Admin: 10/09/17 11:21 Dose: 1.25 mg - Labs Labs: 10/09/17 05:15 10/09/17 05:15
--- NOTE | 2017-10-09 22:54 | CON ---
DATE: 10/09/2017 REASON FOR CONSULTATION: Dizziness, lightheadedness, history of coronary artery disease, status post stent, with a past history of aortic regurgitation. BRIEF CLINICAL HISTORY: This is an 82-year-old female with past medical history significant for coronary artery disease, status post stent in LAD in March 2008 and status post stent in RCA in April 2008, history of non-STEMI in August 2013, then the patient had a stent in RCA, came in with complaint of dizziness all the time, denies any chest pain, shortness of breath, any palpitations, more so on changing the posture. PAST HISTORY: Significant for coronary artery disease, status post PTCA for LAD, goes back to March 2008 and then staged PTCA of RCA in April 2008. Then the patient was admitted with acute coronary syndrome in August 2013, underwent cardiac catheterization and PTCA on distal RCA. At that time, the cardiac catheterization revealed moderate disease to LAD, patent stent in LAD, but before and after the stent, 30% to 40% stenosis in mid LAD and proximal LAD was noted. Critical disease in RCA with 90% stenosis of distal RCA where the proximal and mid patent stent noted, preserved LV function, ejection fraction is 55% to 60%. Successful CRUZ was placed in proximal and mid RCA dated 08/21/2013. SOCIAL HISTORY: Denies any history of alcohol abuse. A recent cardiac workup at here, echocardiography was done on 05/03/2015 that revealed ejection fraction of 55% to 60%, yxscmexv-we-vzlxzo aortic regurgitation, mild valvular aortic stenosis, mild mitral regurgitation, moderate tricuspid regurgitation, RV systolic pressure of 47. The patient had a stress test dated 05/03/2015 that shows normal myocardial perfusion study, ejection fraction of 70%. CURRENT MEDICATIONS: The patient is taking at home amlodipine, simvastatin, ramipril, metoprolol, Lasix, Aricept, Plavix 75 mg, aspirin 81 mg daily. REVIEW OF SYSTEMS: As per HPI. PHYSICAL EXAMINATION: VITAL SIGNS: Temperature afebrile, heart rate 80, blood pressure 153/78. HEENT: PERRLA. Extraocular muscles intact. NECK: Supple. No carotid bruits or thyromegaly. CHEST: Clear to auscultation. HEART: S1 and S2 regular. ABDOMEN: Soft. EXTREMITIES: Clubbing and cyanosis negative. LABORATORY DATA: Blood workup as follows. WBC 9, hemoglobin , hematocrit 36.7, platelet count 379. Chemistry shows sodium 145, potassium 3.8, chloride 109, carbon dioxide 25, anion gap of 15, BUN 18, creatinine 1.0. Troponin is 0.03 negative. TSH is 2.24, triglyceride 109, cholesterol 159, LDL 101, HDL 34. IMPRESSION: Coronary artery disease, status post multiple stent, goes back to March 2008, left anterior descending in April 2008, and right coronary artery in August 2013, two stents in proximal and mid RCA, preserved left ventricular function, bnxgbezs-sj-htwwtu aortic regurgitation, mild aortic stenosis, diabetes, hypertension, hyperlipidemia, admitted with dizziness. RECOMMENDATIONS: We will get echo to assess LV function, severity of aortic regurgitation, aortic stenosis, Holter to arrhythmia. Further recommendation during the hospital course. We will follow with you. Get lipid profile, TSH, hemoglobin A1c. We will supplement potassium. Continue ramipril. Continue aspirin. Continue Plavix. Continue amlodipine. Continue metoprolol. We will check blood pressures in standing, sitting, orthostatic. Further recommendations will be made upon the hospital course and the finding of initial workup. Thank you Dr. Allen for providing us the opportunity in taking care of the patient, Star. Robert Low MD
--- NOTE | 2017-10-09 23:08 | PN ---
DATE: SUBJECTIVE: Patient is seen and examined at the bedside. Looking comfortable. No nausea, vomiting, diarrhea. No hematuria or hematochezia. No swelling of the leg. No chest pain. No palpitation. No headache or dizziness. No fever, no chills. PHYSICAL EXAMINATION: VITAL SIGNS: Temperature 97.9, pulse 81, blood pressure 153/78, respiratory rate 18, oxygen saturation 97%. HEENT: Head: Normocephalic and atraumatic. Eyes: PERRLA. Extraocular muscles intact. Conjunctivae clear. Nose: Patent. Mucous membranes are moist. NECK: Supple. No carotid bruit or thyromegaly. CHEST: Bilaterally symmetrical. HEART: S1 and S2 positive. LUNGS: Clear to auscultation. ABDOMEN: Soft. Bowel sounds present. No organomegaly. EXTREMITIES: No edema. No cyanosis. NEUROLOGIC: Patient is awake and alert. Moving all four extremities. No focal deficits. MEDICATIONS: Altace, Aricept, aspirin, Lasix, Norvasc, Plavix, Protonix, Toprol. LABORATORY DATA: White blood cell 9.0, hemoglobin 11.7, hematocrit 36.7, platelets 379. Glucose 149. Hemoglobin A1c is 5.6. Sodium 145, potassium 3.8, BUN 18, creatinine 1.0, glucose 53. AST 37. ASSESSMENT AND PLAN: Ms. Mary Barton is a 82-year-old lady with abnormal liver function test, hyperchloremia, anemia, proteinuria, urinary tract infection. Seen by the neurologist, Dr. Lasha Santoyo. History of coronary artery disease, chronic congestive heart failure with preserved ejection fraction, hypertension, hypercholesterolemia, underlying mild cognitive impairment, came with dizziness for past 2 weeks, intermittent especially when getting up from sitting to standing position and when she gets up too quickly. Currently, looks like she is not dizzy. CAT scan of the head showed no acute intracranial abnormalities, orthostatics are negative. May be dizziness is secondary to possible transient hypertension episode that is superimposed on underlying positional changes with possible near vasovagal components. She has no focal neurological signs in terms of weakness. Recommended PT, OT. Keep her blood pressure systolic between 130 and 140s. Gastrointestinal and deep venous thrombosis prophylaxis, out of bed. We will follow up. Noemi Allen MD [facility] # [id number] PAOLO
[2017-10-10] MEDS: Metoprolol Succinate 100 mg XL Tab PO SCH (09:20)
[2017-10-10] MEDS: Pantoprazole 40 mg EC Tab PO SCH (09:20)
--- NOTE | 2017-10-10 10:00 | CARD ---
APPROVED REPORT EXAM: Two-dimensional and M-mode echocardiogram with Doppler and color Doppler. INDICATION 2D DIMENSIONS IVSd1.1 (0.7-1.1cm)LVDd4.2 (3.9-5.9cm) PWd1.1 (0.7-1.1cm)LVDs2.8 (2.5-4.0cm) FS (%) 34.2 %LVEF (%)63.6 (>50%) M-Mode DIMENSIONS Left Atrium (MM)3.00 (2.5-4.0cm)Aortic Root3.30 (2.2-3.7cm) Aortic Cusp Exc.1.30 (1.5-2.0cm) Aortic Valve AoV Peak Lzgohyzq829.0cm/Saad Peak GR.31mmHgAI P 1/2 Awvh404qo Mitral Valve MV E Gpyvzeyi53.4cm/sMV A Zspfqhxd051.0cm/sE/A ratio0.4 TDI Lateral E' Peak V3.90cm/sMedial E' Peak V5.65cm/sE/Lateral E'11.1 E/Medial E'7.7 Tricuspid Valve TR Peak Wqcrpynt987jw/sRAP JGJWPHTZ30drBlTL Peak Gr.29mmHg [id number] LEFT VENTRICLE The left ventricle is normal size. There is mild concentric left ventricular hypertrophy. Proximal septal thickening is noted. The left ventricular function is normal.EF-65% There is normal LV segmental wall motion. Transmitral Doppler flow pattern is Grade III-reversible restrictive diastolic dysfunction. No left ventricle thrombus noted on this study. There is no ventricular septal defect visualized. There is no left ventricular aneurysm. There is no mass noted in the left ventricle. RIGHT VENTRICLE The right ventricle is normal size. There is normal right ventricular wall thickness. The right ventricular systolic function is normal. ATRIA The left atrium is moderately dilated in long [place] The right atrium size is normal. The interatrial septum is intact with no evidence for an atrial septal defect. AORTIC VALVE The aortic valve is not well visualized. The aortic valve is calcified and displays decreased opening. There is moderate aortic regurgitation. There is mild valvular aortic stenosis. There is no aortic valvular vegetation. MITRAL VALVE The mitral valve is thickened but opens well. Mitral annular calcification is severe. Mitral regurgitation is trace. There is no mitral valve stenosis. There is no evidence of mitral valve prolapse. TRICUSPID VALVE The tricuspid valve leaflets are thickened , but open well. There is mild tricuspid regurgitation.RVSP-39 mof hg. There is no tricuspid valve stenosis. There is no tricuspid valve prolapse or vegetation. PULMONIC VALVE The pulmonic valve is not well visualized. There is no pulmonic valvular regurgitation. There is no pulmonic valvular stenosis. GREAT VESSELS The aortic root is normal in size. The ascending aorta is normal in size. The pulmonary artery is normal. The IVC is normal in size and collapses >50% with inspiration. PERICARDIAL EFFUSION There is no pleural effusion. There is no pericardial effusion. <Conclusion> The left ventricle is normal size. There is mild concentric left ventricular hypertrophy. Proximal septal thickening is noted. The left ventricular function is normal.EF-65% The aortic valve is not well visualized. The aortic valve is calcified and displays decreased opening. There is moderate aortic regurgitation. There is mild valvular aortic stenosis. Mitral regurgitation is trace. There is mild tricuspid regurgitation.RVSP-39 mof hg. No Vegetation or thrombus noted.
--- NOTE | 2017-10-10 14:56 | PN ---
DATE: REASON FOR CONSULTATION: Follow up dizziness, lightheadedness, history of coronary artery disease, history of multiple stents, history of aortic regurgitation. SUBJECTIVE: The patient denies any chest pain, shortness of breath or any palpitations. Feels cold, but no dizziness. OBJECTIVE: GENERAL: Not in apparent distress. VITAL SIGNS: Temperature afebrile, heart rate 70, blood pressure 136/80. HEENT: PERRLA. Extraocular muscles intact. NECK: Supple. No carotid bruit or thyromegaly. HEART: S1 and S2 regular. CHEST: Clear to auscultation. ABDOMEN: Soft. EXTREMITIES: Clubbing and cyanosis negative. LABORATORY DATA: Blood workup as follows: WBC 9, hemoglobin , hematocrit 36.7, platelet count 379. Chemistry shows sodium as of yesterday 145, potassium 3.8, chloride 109, carbon dioxide 25, anion gap of 15. BUN 18, creatinine 1.0, TSH 2.24. LDL 101, HDL 34, triglyceride 109, total cholesterol 159. IMPRESSION: No evidence of acute myocardial infarction, history of coronary artery disease in 03/2008, history of multiple stents in the past, history of aortic regurgitation, history of coronary artery disease in 03/2008, LAD in 04/2009, right coronary artery, later on the patient in 08/2013 had another stent in right coronary artery, history of mild aortic stenosis and wescxple-[id number] aortic regurgitation, diabetes, hypertension, hyperlipidemia admitted with dizziness, improved. RECOMMENDATIONS: Continue metoprolol. Continue ramipril. Continue aspirin. Continue Plavix. Echo to assess LV function, Holter is in progress. Bilateral carotid Duplex showed stenosis, CVA status is stable. No arrhythmia noted in telemetry. Thank you, Dr. Allen, for providing us the opportunity in taking care of the patient, Mary Barton. Robert Low MD
--- NOTE | 2017-10-10 22:47 | CP.PCM.PN ---
<Pearl Tejeda - Last Filed: 10/10/17 22:43> Subjective - Date & Time of Evaluation Date of Evaluation: 10/10/17 Time of Evaluation: 11:40 - Subjective Subjective: Chief Complaint: Dizziness/Confusion 88 yr female w/ history of CAD, CHF, HTN, hypercholesterolemia, anemia , arthritis, hernia repair, and dementia. 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 Patient lives alone. Pt has been seen wandering by hospital staff and required administration of xanax for her agitation. Holter monitor on chest. Pt is able to deny any headache, fever, chill, nausea, vomiting, diarrhea, constipation, chest pain, shortness of breath , paraesthesias, or urinary changes. Objective - Vital Signs/Intake and Output Vital Signs (last 24 hours): Temp Pulse Resp BP Pulse Ox 98 F 74 18 140/82 99 10/10/17 16:00 10/10/17 18:00 10/10/17 16:00 10/10/17 16:00 10/10/17 16:00 Intake and Output: 10/10/17 10/11/17 18:59 06:59 Intake Total 720 Balance 720 - Medications Medications: Current Medications Amlodipine Besylate (Norvasc) 2.5 mg PO DAILY [facility] Last Admin: 10/10/17 09:19 Dose: 2.5 mg Aspirin (Aspirin Chewable) 81 mg PO DAILY [facility] Last Admin: 10/10/17 09:20 Dose: 81 mg Clopidogrel Bisulfate (Plavix) 75 mg PO DAILY [facility] Last Admin: 10/10/17 09:20 Dose: 75 mg Cyanocobalamin (Vitamin B12 1000 Mcg Tab) 1,000 mcg PO DAILY [facility] Donepezil HCl (Aricept) 5 mg PO HS [facility] Last Admin: 10/10/17 22:01 Dose: 5 mg Furosemide (Lasix) 40 mg PO DAILY [facility] Last Admin: 10/10/17 09:20 Dose: 40 mg Metoprolol Succinate (Toprol Xl) 100 mg PO BRK [facility] Last Admin: 10/10/17 09:20 Dose: 100 mg Pantoprazole Sodium (Protonix Ec Tab) 40 mg PO DAILY [facility] Last Admin: 10/10/17 09:20 Dose: 40 mg Ramipril (Altace) 1.25 mg PO DAILY [facility] Last Admin: 10/10/17 09:19 Dose: 1.25 mg - Constitutional Appears: Well - Head Exam Head Exam: ATRAUMATIC, NORMAL INSPECTION, NORMOCEPHALIC - Eye Exam Eye Exam: EOMI, Normal appearance, PERRL Pupil Exam: NORMAL ACCOMODATION, PERRL - ENT Exam ENT Exam: Mucous Membranes Moist, Normal Exam - Neck Exam Neck Exam: Full ROM, Normal Inspection. absent: Lymphadenopathy - Respiratory Exam Respiratory Exam: Clear to Ausculation Bilateral, NORMAL BREATHING PATTERN - Cardiovascular Exam Cardiovascular Exam: REGULAR RHYTHM, +S1, +S2. absent: Murmur - GI/Abdominal Exam GI & Abdominal Exam: Soft, Normal Bowel Sounds. absent: Tenderness - Extremities Exam Extremities Exam: Full ROM, Normal Capillary Refill, Normal Inspection. absent : Joint Swelling, Pedal Edema - Back Exam Back Exam: NORMAL INSPECTION - Neurological Exam Neurological Exam: Alert, Awake, Normal Gait - Psychiatric Exam Psychiatric exam: Normal Affect, Normal Mood - Skin Skin Exam: Dry, Intact, Normal Color, Warm Assessment and Plan (1) Hypotension Status: Acute (2) Vasovagal near syncope Status: Acute (3) Pernicious anemia Status: Acute (4) Proteinuria Status: Acute (5) Abnormal LFTs Status: Acute (6) Dizziness Status: Acute - Assessment and Plan (Free Text) Plan: Vitamin B12 supplemented. US abd for abn LFT. GI/VTE prophylaxis. Labs ordered. NEGATIVE orthostatics. PT/OT Consults: Psych - Dr. Tolentino Neuro - Dr. Santoyo Cardio - Devante Reviewed: CT head = WNL Carotid US = 20-39% proximal ICA stenosis ECG = ABNORMAL, SR, 1 degree AVB, nonspecific T wave abnormality ECHO = EF 65&, mild concetric LVH, mod aortic regurg <Noemi Allen - Last Filed: 10/11/17 22:22> Objective - Vital Signs/Intake and Output Vital Signs (last 24 hours): Temp Pulse Resp BP Pulse Ox 97.9 F 70 19 82/54 L 95 10/11/17 16:00 10/11/17 16:00 10/11/17 16:00 10/11/17 16:00 10/11/17 16:00 Intake and Output: 10/11/17 10/12/17 18:59 06:59 Intake Total 360 Balance 360 - Labs Labs: 10/11/17 05:30 03/01/18 05:30 Assessment and Plan - Assessment and Plan (Free Text) Plan: 88 yr female w/ history of CAD, CHF, HTN, hypercholesterolemia, anemia , arthritis, hernia repair, and dementia. 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 Patient lives alone. Pt has been seen wandering by hospital staff and required administration of xanax for her agitation. Holter monitor on chest. Pt is able to deny any headache, fever, chill, nausea, vomiting, diarrhea, constipation, chest pain, shortness of breath , paraesthesias, or urinary changes. pt is seen and examined at bed side . looking comfortable , agreed all above . chart , labs and meds noted . will f/u
[2017-10-11 06:50] LABS: BASO # 0.04 K/mm3 (0.0-2.0); BASO % 0.4 % (0.0-3.0); EOS # 1.7 (0.0-0.7); EOS % 18.3 % (1.5-5.0); GRAN # 2.8 (1.4-6.5); GRAN % 30.8 % (50.0-68.0); HEMOGLOBIN 10.6 g/dL (12.0-16.0); LYMPH % 44.4 % (22.0-35.0); MEAN CELL VOLUME 85.6 fl (80.0-105.0); MEAN CORPUSCULAR HEMOGLOBIN 27.2 pg (25.0-35.0); MEAN CORPUSCULAR HGB CONC 31.8 g/dl (31.0-37.0); MEAN PLATELET VOLUME 9.7 fl (7.0-11.0); MONO # 0.6 (0.1-0.6); MONO % 6.1 % (1.0-6.0); RBC 3.89 10^6/uL (3.5-6.1); RED CELL DISTRIBUTION WIDTH 15.8 % (11.5-14.5); WHITE BLOOD COUNT 9.1 10^3/ul (4.5-11.0)
[2017-10-11 07:16] LABS: ALB/GLOB RATIO 1.1 (1.1-1.8); ALBUMIN 3.7 g/dL (3.0-4.8); CALCIUM 9.9 mg/dL (8.4-10.5)
[2017-10-11] MEDS: Metoprolol Succinate 100 mg XL Tab PO SCH (08:32)
[2017-10-11 08:39] VITALS: O2SAT 95
[2017-10-11] MEDS: Pantoprazole 40 mg EC Tab PO SCH (09:57)
--- NOTE | 2017-10-11 10:43 | US ---
HISTORY: ABN LFT COMPARISON: None. TECHNIQUE: Grayscale imaging was performed. FINDINGS: LIVER: Measures 14.7 cm. Normal echogenicity of the liver parenchyma. There is a 9 mm simple cyst in the right hepatic lobe. No intrahepatic bile duct dilatation. GALLBLADDER: There are no gallstones, wall thickening or pericholecystic fluid. The sonographic Glez's sign negative. COMMON BILE DUCT: Measures 7.2 mm. No stones. No dilatation. PANCREAS: Unremarkable as visualized. No mass. No ductal dilatation. RIGHT KIDNEY: Measures 8.9cm. Normal echogenicity. No calculus, mass, or hydronephrosis. LEFT KIDNEY: Measures 8.4cm. Normal echogenicity. No calculus, mass, or hydronephrosis. There is 0.9 x 0.8 x 1.1 cm simple cyst in the upper pole. SPLEEN: Normal in size and contour. No mass. AORTA: No aneurysmal dilatation. IVC: Unremarkable. OTHER FINDINGS: None. IMPRESSION: 9 mm simple cyst in the right hepatic lobe. No other significant sonographic abnormality in the liver. No cholelithiasis or biliary dilatation.
--- NOTE | 2017-10-11 14:28 | CARD ---
APPROVED REPORT Reason for Test: DIZZINESS Hookup date: 2017-10-09 Scan date: 2017-10-11 Recording time: 23 HR 59 MIN Heart Rate Data Total Beats: [id number] Min HR: 52 BPM at 8:59PM Avg HR: 71 BPM Max HR: 107 BPM at 9:56AM Ventricular Ectopy Total VE Beats: 25 (0.0%) Couplets: 1 Events Single/Interp PVC: 22/1 Supraventricular Ectopy Total VE Beats: 240 (0.2%) Atrial Runs: 1 Beats: 5 Longest: 5 Fastest: 141 BPM Atrial Pairs: 2 Events Drop/Late: 0/15 Longest R-R: 1.9 sec at 2:41 PM Single PAC's: 216 Conclusion SINUS RHYTHM / SINUS BRADYCARDIA / SINUS TACHYCARDIA MINIMUM HR 52 BPM MAXIMUM HR 107 BPM VERY RARE APC'S, ISOLATED PAIRED, 1 RUN-5 BEATS, 141 BPM ISOLATED VPC'S, PAIRED, INTERPOLATED THERE WERE NO DIARY ENTRIES.
[2017-10-11 16:57] VITALS: BP 82/54; PULSE 70; RESP 19; TEMP 97.9
--- NOTE | 2017-10-11 17:39 | PN ---
DATE: REASON FOR CONSULTATION AND FOLLOWUP: Dizziness, lightheadedness, history of coronary artery disease, history of multiple stents, history of aortic regurgitation. OBJECTIVE: GENERAL: Not in apparent distress. VITAL SIGNS: Temperature afebrile, heart rate 67, blood pressure 131/76. HEENT: PERRLA. Extraocular muscles intact. NECK: Supple. No carotid bruits or thyromegaly. CHEST: Clear to auscultation. HEART: S1 and S2, regular. ABDOMEN: Soft. EXTREMITIES: Clubbing and cyanosis negative. LABORATORY DATA: Blood workup as follows: WBC 9.3, hemoglobin 10.6, hematocrit 33.3, platelet count 338. Chemistry showed sodium 143, potassium 3.6, chloride 108, carbon dioxide 21, anion gap of 17. BUN 26, creatinine 1.4. The patient had echocardiography done yesterday that showed ejection fraction 55%, aortic valve calcified , moderate aortic regurgitation, moderate aortic stenosis, trace mitral regurgitation, mild tricuspid regurgitation, RV systolic pressure of 39. History of coronary artery disease, status post multiple stents in the past in 03/2008, LAD in 04/2008, right coronary artery, and then 08/2013, mid RCA. Aortic stenosis, mild aortic regurgitation, diabetes, hypertension, hyperlipidemia. RECOMMENDATION: Continue ramipril 1.25 mg daily, continue aspirin, continue amlodipine, continue Plavix. We will follow with you. CVS status is stable. No further cardiac workup is planned. Thank you Dr. Allen for providing us the opportunity in taking care of the patient, Star Barton. Robert Low MD
--- NOTE | 2017-10-12 08:27 | CON ---
DATE: 10/11/2017 PRESENTATION: Patient is an 82-year-old female who was admitted to the hospital on 10/08/2017. She came in to the emergency room complaining of dizziness for the past 2 weeks. Patient currently lives at home by herself with the director airport operations and the director airport operations was concerned about her confusion, which seems to be increasing. Psychiatric consultation was ordered for confusion. Patient was seen today at bedside with an RN, who is fluent in Congolese, as patient only speaks Congolese. Patient was able to tell me that she lives alone in her own apartment. She has a director airport operations who comes in every day, but Sunday. She has 8 children and one had , but she has a large extended family, all of whom live in the area with the exception of her daughter, Armida Quick, who lives in [place], [place]. She is in close contact with her family here in the hospital. She rarely is alone in the room. She has grandchildren and children visiting almost constantly. She indicates that she has never had any psychiatric problem. She has never seen a psychiatrist before. She never had any psychiatric medications or suicide attempts and she indicates that she is basically a happy person, she has no depression or anxiety, and she has a good life. Patient indicates that she for the most part has good memory. She has been told she has some confusion, but she thinks it is very little. She indicates that she is able to care for herself and cook for herself and clean her apartment when she does not have a director airport operations with her. She does not manage her own money, her family pay her bills and expenses and take her shopping. Medically, patient has a history of CAD, chronic CHF, hypertension, hypercholesterolemia, and possible dementia. Patient did not seem to think she had seen a neurologist. She gave me permission to speak with her daughter, Armida Quick, but was unable to give me a phone number for that daughter that is the one she want me to speak with. She denies any family history of depression. Denies ever using alcohol or drugs. Denies ever having any legal problems or access to guns. She indicates that she has had a happy life and she is doing well. Patient's vital signs include temperature of 97.9, pulse rate of 70, blood pressure 82/54, respiratory rate of 19 and O2 saturation of 95. Patient is on donepezil 5 mg one at bedtime. In review of the nurse's notes and in speaking with the nurses, she has had some periods of confusion while in the hospital. pharmaceutical worker's notes indicates that patient's daughter, Armida, with whom I talked to via cell phone, who lives in [place], and she indicated that her mom lives alone and has a homemaker Sunday through Sunday from 8 to 12. Her family is concerned about her walking and want the homemaker for more hours, as they are concerned about her taking medications correctly and cooking, and the director social gave her information as to how to do that. Patient indicates that she does not formally have a power of assignment clerk in place, that her daughter, Armida, is the one who handles most of these things, but it is not a formal arrangement. I reviewed with the patient the importance of having someone that is able to handle things, should she be unconscious or unable to make decisions, and she indicated that she would talk with her daughter about that. MENTAL STATUS EXAMINATION: Patient is alert and oriented x3. Her eye contact is good. Her behavior is pleasant and cooperative. Her speech rate and volume are all within normal limits. Mood is euthymic. Affect is full. Thoughts are goal directed. She denies being suicidal or homicidal. Denies the presence of hallucinations, delusions or paranoia. Her concentration and focus, she indicates are good. Her conversation is logical and coherent. Her memory has some deficits. Her appetite and her sleep, she indicates are normal. DIAGNOSTIC IMPRESSION: Dementia without behavioral disturbance. PLAN: Patient denies being suicidal or homicidal. She appears to be in no imminent danger of hurting herself or others. She has no history of hurting herself, nor any psychiatric history at all. Patient does appear to need more care at home and the family is working on this; however, it does appear that she has a very loving, involved family because they have spent a lot of time visiting her at the hospital. Additionally, I discussed with the patient the need to formally have paperwork for the power of assignment clerk, and she indicates that she will talk with her daughter, Armida, regarding that. I will sign off on this patient at this time. She is psychiatrically cleared for discharge. Thank you for the consult. Caren Thomas APN Macey Delvalle MD. PAOLO
== END 2017-10-11 18:09 | disposition home or self-care (01) | DRG 315 ==
LOC: ED 09:57 → ERH 15:06 → 3RNO 20:03 → OBSVTOIN 10-09 21:40
PROVIDERS: ADMIT Internal Medicine; ATTEND Internal Medicine
DX: I95.9 Hypotension, unspecified (principal); N39.0 Urinary tract infection, site not specified; E87.8 Other disorders of electrolyte and fluid balance, not elsewhere classified; I11.0 Hypertensive heart disease with heart failure; I50.9 Heart failure, unspecified; D51.0 Vitamin B12 deficiency anemia due to intrinsic factor deficiency; E11.9 Type 2 diabetes mellitus without complications; R55 Syncope and collapse; E78.00 Pure hypercholesterolemia, unspecified; E78.5 Hyperlipidemia, unspecified; F03.90 Unspecified dementia, unspecified severity, without behavioral disturbance, psychotic disturbance, mood disturbance, and anxiety; I08.3 Combined rheumatic disorders of mitral, aortic and tricuspid valves; I25.10 Atherosclerotic heart disease of native coronary artery without angina pectoris; I25.2 Old myocardial infarction; Z79.02 Long term (current) use of antithrombotics/antiplatelets; Z79.899 Other long term (current) drug therapy; Z95.5 Presence of coronary angioplasty implant and graft

== ENCOUNTER 2018-05-08 18:50 | Emergency (ER) | payer MEDICAID, MEDICARE ==
[2018-05-08 19:24] VITALS: BMI 29.2
[2018-05-08 19:39] VITALS: TEMP 98.1
--- NOTE | 2018-05-08 20:09 | ED PDOC ---
Arrival/HPI - General Chief Complaint: High Blood Pressure Time Seen by Provider: 05/08/18 19:14 Historian: Patient - History of Present Illness Narrative History of Present Illness (Text): 05/08/18 20:05 Patient is a 83 year old female who presents to the Emergency department for dizziness. Patient reports having elevated blood pressure and experiencing dizziness the whole day. Patient denies fevers, chills, cough, shortness of breath, chest pain, dyspnea on exertion, abdominal pain, nausea, vomiting, diarrhea, back pain, neck pain, headache, or any other complaint. Time/Duration: Other (Today) Symptom Onset: Sudden Symptom Course: Unchanged Context: Home Past Medical History - Provider Review Nursing Documentation Reviewed: Yes - Infectious Disease Hx of Infectious Diseases: None - Tetanus Immunization Tetanus Immunization: Unknown - Reproductive Menopause: Yes - Cardiac Hx Congestive Heart Failure: Yes Hx Hypertension: Yes - Pulmonary Hx Pneumonia: Yes - Neurological HX Cerebrovascular Accident: Yes - HEENT Hx HEENT Disorder: No - Renal Hx Renal Disorder: No - Endocrine/Metabolic Hx Endocrine Disorders: No - Hematological/Oncological Hx Anemia: Yes - Integumentary Hx Dermatological Disorder: No - Musculoskeletal/Rheumatological Hx Arthritis: Yes - Gastrointestinal Hx Gastrointestinal Disorders: No - Genitourinary/Gynecological Hx Genitourinary Disorders: No - Psychiatric Hx Depression: No Hx Substance Use: No - Past Surgical History Past Surgical History: Non-Contributing - Surgical History Hx Coronary Stent: Yes (?) - Anesthesia Hx Anesthesia: Yes Hx Anesthesia Reactions: No Hx Malignant Hyperthermia: No - Suicidal Assessment Feels Threatened In Home Enviroment: No Family/Social History - Physician Review Nursing Documentation Reviewed: Yes Family/Social History: No Known Family HX Smoking Status: Never Smoked Hx Alcohol Use: No Hx Substance Use: No Hx Substance Use Treatment: No Allergies/Home Meds Allergies/Adverse Reactions: Allergies No Known Allergies Allergy (Verified 07/18/17 20:43) Home Medications: Home Meds Medication Instructions Recorded Confirmed Clopidogrel [Plavix] 75 mg PO DAILY 07/11/17 05/08/18 Furosemide [Lasix] 1 tab PO DAILY 07/11/17 05/08/18 Metoprolol Succinate 100 mg PO DAILY 07/11/17 05/08/18 Simvastatin 40 mg PO HS 07/11/17 05/08/18 amLODIPine [Norvasc] 1 tab PO DAILY 07/11/17 05/08/18 Donepezil [Aricept] 5 mg PO DAILY 10/08/17 05/08/18 Acetaminophen [Tylenol 325mg tab] 650 mg PO BID PRN 02/21/18 05/08/18 Aspirin [Low Dose Aspirin EC] 81 mg PO DAILY 02/21/18 05/08/18 Ramipril [Altace] 2.5 mg PO DAILY 02/21/18 05/08/18 Review of Systems - Physician Review All systems were reviewed & negative as marked: Yes - Review of Systems Constitutional: absent: Fevers, Other (chills) Respiratory: absent: SOB, Cough Cardiovascular: absent: Chest Pain, ENRIQUEZ Gastrointestinal: absent: Abdominal Pain, Diarrhea, Nausea, Vomiting Genitourinary Female: absent: Urine Output Changes Neurological: Dizziness. absent: Headache Physical Exam Vital Signs Reviewed: Yes Vital Signs Temp Pulse Resp BP Pulse Ox 05/08/18 19:36 98.1 F 61 18 139/65 96 Temperature: Afebrile Blood Pressure: Normal Pulse: Regular Respiratory Rate: Normal Appearance: Positive for: Well-Appearing Mental Status: Positive for: Alert and Oriented X 3 - Systems Exam Head: Present: Atraumatic, Normocephalic Pupils: Present: PERRL Extroacular Muscles: Present: EOMI Conjunctiva: Present: Normal Mouth: Present: Moist Mucous Membranes Neck: Present: Normal Range of Motion Respiratory/Chest: Present: Clear to Auscultation, Good Air Exchange. No: Respiratory Distress, Accessory Muscle Use Cardiovascular: Present: Regular Rate and Rhythm, Normal S1, S2. No: Murmurs Abdomen: No: Tenderness, Distention, Peritoneal Signs Back: Present: Normal Inspection Upper Extremity: Present: Normal Inspection. No: Cyanosis, Edema Lower Extremity: Present: Normal Inspection. No: Edema Neurological: Present: GCS=15, CN II-XII Intact, Speech Normal Skin: Present: Warm, Dry, Normal Color. No: Rashes Psychiatric: Present: Alert, Oriented x 3, Normal Insight, Normal Concentration Medical Decision Making ED Course and Treatment: 05/08/18 20:07 Impression: Patient is a 83 year old female complaining of dizziness that started earlier today. Differential Diagnosis included but are not limited to: Hypertension vs. Dizziness Plan: -- EKG -- Reassess and disposition Prior Visits: Notes and results from previous visits were reviewed. Progress Notes: Reviewed EKG, sinus bradycardia at 59 bpm. 1st degree AV block. LVH. No acute changes. 05/08/18 23:18 CT Brain Impression: 1. There is generalized parenchymal atrophy noted as demonstrated by symmetrical dilatation of ventricles and sulci. 2. 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 3. No acute intracranial pathology. - Lab Interpretations I have reviewed the lab results: Yes - EKG Interpretation Interpreted by ED Physician: Yes Type: 12 lead EKG - Scribe Statement The provider has reviewed the documentation as recorded by the Scribe Stas Ashton Provider Scribe Attestation: All medical record entries made by the Scribe were at my direction and personally dictated by me. I have reviewed the chart and agree that the record accurately reflects my personal performance of the history, physical exam, medical decision making, and the department course for this patient. I have also personally directed, reviewed, and agree with the discharge instructions and disposition. Disposition/Present on Arrival - Present on Arrival History of DVT/PE: No History of Uncontrolled Diabetes: No Urinary Catheter: No History of Decub. Ulcer: No History Surgical Site Infection Following: None - Disposition Diagnosis: Dizziness Disposition: HOME/ ROUTINE Disposition Time: 23:45 Patient Problems: Current Active Problems Problem Status Onset Dizziness Acute Discharge Instructions (ExitCare): Vertigo (a Type of Dizziness) Prescriptions: Meclizine [Antivert] 12.5 mg PO TID #21 tab Forms: [employer] (Namibian)
[2018-05-08 21:03] LABS: ALB/GLOB RATIO 1.1 (1.1-1.8); ALBUMIN 4.4 g/dL (3.0-4.8); CALCIUM 9.7 mg/dL (8.4-10.5)
[2018-05-08 21:14] LABS: TROPONIN I 0.02 ng/mL
[2018-05-08 21:17] LABS: BASO # 0.05 K/mm3 (0.0-2.0); BASO % 0.5 % (0.0-3.0); EOS # 1.5 (0.0-0.7); EOS % 14.4 % (1.5-5.0); GRAN # 3.3 (1.4-6.5); GRAN % 32.6 % (50.0-68.0); HEMOGLOBIN 11.3 g/dL (12.0-16.0); LYMPH # 4.8 (1.2-3.4); LYMPH % 47.3 % (22.0-35.0); MEAN CELL VOLUME 86.4 fl (80.0-105.0); MEAN CORPUSCULAR HEMOGLOBIN 27.4 pg (25.0-35.0); MEAN CORPUSCULAR HGB CONC 31.7 g/dl (31.0-37.0); MONO # 0.5 (0.1-0.6); MONO % 5.2 % (1.0-6.0); RBC 4.13 10^6/uL (3.5-6.1); RED CELL DISTRIBUTION WIDTH 14.7 % (11.5-14.5); WHITE BLOOD COUNT 10.1 10^3/ul (4.5-11.0)
[2018-05-08 22:12] VITALS: BP 134/54; PULSE 65; RESP 19; O2SAT 95
--- NOTE | 2018-05-09 08:49 | CT ---
Date of service: 05/08/2018 PROCEDURE: CT HEAD WITHOUT CONTRAST. HISTORY: dizzy COMPARISON: None available. TECHNIQUE: Axial computed tomography images were obtained through the head/brain without intravenous contrast. Radiation dose: Total exam DLP = 673.32 mGy-cm. This CT exam was performed using one or more of the following dose reduction techniques: Automated exposure control, adjustment of the mA and/or kV according to patient size, and/or use of iterative reconstruction technique. FINDINGS: HEMORRHAGE: No intracranial hemorrhage. BRAIN: Good corticomedullary differentiation is seen. Proportional, diffuse expansion of the ventriculosulcal and cisternal spaces is appreciated with white matter lucency compatible with diffuse cerebral atrophy and chronic microangiopathy. No suspicious extra-axial fluid collection is identified and the midline brain anatomy appears grossly nonfocal as imaged. There is no mass effect throughout. VENTRICLES: Unremarkable. No hydrocephalus. CALVARIUM: Unremarkable. PARANASAL SINUSES: Unremarkable as visualized. No significant inflammatory changes. MASTOID AIR CELLS: Unremarkable as visualized. No inflammatory changes. OTHER FINDINGS: None. IMPRESSION: No definite acute intracranial findings by standard CT criteria. Reiteration of age-appropriate age related neuro degenerative changes compared to prior CT 10/08/2017. Follow-up CT or MRI may be utilized as clinically warranted. Concordant preliminary report from [facility], 05/08/2018.
--- NOTE | 2018-05-09 13:02 | CARD ---
APPROVED REPORT Date of service: 05/08/2018 EKG Measurement Heart [id number] <Conclusion> Sinus bradycardia with 1st degree AV block Moderate voltage criteria for LVH, may be normal variant
== END 2018-05-08 23:57 | disposition home or self-care (01) ==
LOC: ED 18:50
DX: R42 Dizziness and giddiness (principal); I10 Essential (primary) hypertension

== ENCOUNTER 2018-10-09 07:48 | Outpatient (CLI) | payer MEDICARE, MEDICAID | END 2018-10-09 07:49 | disposition home or self-care (01) | LOC: CARDIO 07:48 | DX: R07.9 Chest pain, unspecified (principal); R06.02 Shortness of breath; E78.00 Pure hypercholesterolemia, unspecified; I10 Essential (primary) hypertension; I25.10 Atherosclerotic heart disease of native coronary artery without angina pectoris; I27.20 Pulmonary hypertension, unspecified; I34.0 Nonrheumatic mitral (valve) insufficiency; Z79.82 Long term (current) use of aspirin; Z79.899 Other long term (current) drug therapy; Z95.5 Presence of coronary angioplasty implant and graft ==